=== PATIENT | female | born 2000 | race Hispanic/Latino ===

== ENCOUNTER 2018-01-18 12:16 | Emergency (ER) | payer SELFPAY ==
[~2018-01-18 12:16] MED LIST: CIPR-245 PO
== END 2018-01-18 12:44 | disposition left against medical advice (07) ==
LOC: EDH 12:16
DX: N93.9 Abnormal uterine and vaginal bleeding, unspecified (principal); Z53.21 Procedure and treatment not carried out due to patient leaving prior to being seen by health care provider

== ENCOUNTER 2018-01-22 22:24 | Emergency (ER) | payer SELFPAY | END 2018-01-23 01:47 | disposition left against medical advice (07) | LOC: EDH 22:24 | DX: F41.9 Anxiety disorder, unspecified (principal); Z87.891 Personal history of nicotine dependence; Z53.21 Procedure and treatment not carried out due to patient leaving prior to being seen by health care provider ==